=== PATIENT | female | born 1965 | race Caucasian/White ===

== ENCOUNTER 2021-12-24 14:11 | Emergency (ER) | payer OTHER ==
[~2021-12-24] VITALS: Ht 167.6 cm; Wt 77.1 kg
[2021-12-24] MEDS ORDERED: TDAP DIPH,PERTUSS,TET VAC/PF 0.5 ML DISP.SYRIN IM ONE ×2 (15:00→15:28)
[2021-12-24] MEDS ORDERED: IBUP-1955 PO (15:37)
--- NOTE | 2021-12-24 15:37 | NUR ---
Applied finger splint to Lt index finger per MD request.
[2021-12-24] MEDS ORDERED: IBUPROFEN 600 MG TABLET PO ONE (15:45)
[2021-12-24] MEDS ORDERED: IBUPROFEN 600 MG TABLET ONE (15:51)
== END 2021-12-24 16:00 | disposition home or self-care (01) ==
LOC: ER 14:11
DX: S60.022A Contusion of left index finger without damage to nail, initial encounter (principal); S61.211A Laceration without foreign body of left index finger without damage to nail, initial encounter; W20.8XXA Other cause of strike by thrown, projected or falling object, initial encounter; Y92.89 Other specified places as the place of occurrence of the external cause; Y99.0 Civilian activity done for income or pay
CPT/HCPCS: 73140; 90715; A4663

== ENCOUNTER 2022-02-07 07:56 | Emergency (ER) | payer OTHER ==
[~2022-02-07] VITALS: Ht 172.7 cm; Wt 72.6 kg
[~2022-02-07 07:56] MED LIST: IBUP-1955 PO
--- NOTE | 2022-02-07 09:09 | NUR ---
PT WAS EVALUATED BY DR KNIGHT. PT WAS D/C'd TO HOME. D/C INSTRUCTIONS GIVEN TO THE PT BY DR KNIGHT.
[2022-02-07 09:11] VITALS: BP 138/75
== END 2022-02-07 09:12 | disposition home or self-care (01) ==
LOC: ER 08:07
DX: G90.512 Complex regional pain syndrome I of left upper limb (principal); M79.645 Pain in left finger(s)
CPT/HCPCS: A4663